=== PATIENT | female | born 1945 | race Caucasian/White ===

== ENCOUNTER 2025-01-05 14:12 | Inpatient (IN) | payer MEDICAID ==
[~2025-01-05] VITALS: Ht 134.6 cm; Wt 43.5 kg
[~2025-01-05 14:12] MED LIST: ASPI-1497 MT; ATOR40TA70 MT; COR6 PO; MULT-1247 PO; NIFE-32 PO
[2025-01-05 14:19] VITALS: O2SAT 95
[2025-01-05 15:39] LABS: BG DEOXYHEMOGLOBIN 21.7 % (0.0-5.0)
[2025-01-05 15:41] LABS: TROPONIN I HIGH SENSITIVITY 15 ng/L (3.0-34)
[2025-01-05 15:43] LABS: UREA NITROGEN BLOOD 18 mg/dL (9-23)
[2025-01-05 15:44] LABS: ASPARTATE AMINOTRANSFERASE 26 IU/L (<34); CREATININE 1.7 mg/dL (0.6-1.0)
[2025-01-05 15:45] LABS: BILIRUBIN DIRECT 0.1 mg/dL (<=3.0); BILIRUBIN TOTAL 0.3 mg/dL (0.1-1.0); PROTEIN TOTAL 6.0 g/dL (6.0-8.3)
[2025-01-05 17:27] LABS: BASOPHILS % 1.0 % (0.0-2.0); EOSINOPHILS % 1.6 % (0.0-5.0); HEMATOCRIT. 31.5 % (36.0-48.0); HEMOGLOBIN. 10.3 g/dL (12.0-16.0); LYMPHOCYTES % 17.7 % (20.0-50.0); MEAN PLATELET VOLUME 8.6 fl (7.4-10.4); MONOCYTES % 7.0 % (2.0-8.0); NEUTROPHILS % 72.7 % (40.0-76.0); PLATELET 156 x1000/uL (130-400); RED BLOOD CELL COUNT 2.95 mill/uL (4.2-5.4); RED CELL DISTRIBUTION WIDTH 15.1 % (11.6-14.6)
[2025-01-05] MEDS ORDERED: IOHEXOL-350 100 ML BOTTLE ONE (23:35)
[2025-01-06 00:26] VITALS: BP 142/67; PULSE 78; RESP 16; TEMP 36.2512
[2025-01-06] MEDS: ATORVASTATIN CALCIUM 40MG TABLET PO SCH (02:23)
[2025-01-06 07:22] LABS: TROPONIN I HIGH SENSITIVITY 17 ng/L (3.0-34)
[2025-01-06 07:36] LABS: BASOPHILS % 0.7 % (0.0-2.0); EOSINOPHILS % 4.3 % (0.0-5.0); HEMATOCRIT. 34.9 % (36.0-48.0); HEMOGLOBIN. 11.4 g/dL (12.0-16.0); LYMPHOCYTES % 28.8 % (20.0-50.0); MEAN PLATELET VOLUME 8.4 fl (7.4-10.4); MONOCYTES % 7.9 % (2.0-8.0); NEUTROPHILS % 58.3 % (40.0-76.0); PLATELET 137 x1000/uL (130-400); RED BLOOD CELL COUNT 3.24 mill/uL (4.2-5.4); RED CELL DISTRIBUTION WIDTH 15.5 % (11.6-14.6)
[2025-01-06 08:00] VITALS: BP 205/71; PULSE 67; RESP 20; TEMP 36.6
[2025-01-06] MEDS: HYDRALAZINE 20MG/ML VIAL IV PRN (09:04)
[2025-01-06] MEDS: MULTIVITAMINS,THER W-MINERALS TABLET PO SCH (09:04)
[2025-01-06] MEDS: ASPIRIN 81MG EC TABLET PO SCH (09:05)
[2025-01-06] MEDS: CARVEDILOL 6.25 MG TABLET PO SCH (09:06)
[2025-01-06] MEDS: NIFEDIPINE XL 60MG TAB PO SCH (09:07)
[2025-01-06] MEDS: CLONIDINE 0.1MG TABLET PO PRN (11:12)
[2025-01-06 12:00] VITALS: BP 181/54; PULSE 73; RESP 16; TEMP 37.1; O2SAT 96
[2025-01-06 16:00] VITALS: BP 130/48; PULSE 74; RESP 16; TEMP 37.3; O2SAT 92
[2025-01-06 18:16] LABS: T4 FREE 1.23 ng/dL (0.89-1.76)
[2025-01-06 19:42] LABS: FOLIC ACID (FOLATE) SERUM 19.15 ng/mL (>5.38); VITAMIN B12 SERUM 801 pg/mL (211-911)
[2025-01-06 20:00] VITALS: BP 104/62; PULSE 73; RESP 16; TEMP 36.6; O2SAT 99
[2025-01-06] MEDS: HEPARIN 5000 UNITS/ML VIAL SUBCUT SCH (21:45)
[2025-01-07] VITALS: BP 159/42; PULSE 80; RESP 17; TEMP 37.1; O2SAT 94
[2025-01-07] MEDS: DIPHENHYDRAMINE 50MG/ML VIAL IV PRN (00:35)
[2025-01-07 04:00] VITALS: BP 113/81; PULSE 72; RESP 16; TEMP 36.9; O2SAT 94
[2025-01-07 08:00] VITALS: BP 247/89; PULSE 73; RESP 17; TEMP 36.9; O2SAT 95
[2025-01-07 09:28] LABS: BASOPHILS % 1.2 % (0.0-2.0); EOSINOPHILS % 4.8 % (0.0-5.0); HEMATOCRIT. 32.4 % (36.0-48.0); HEMOGLOBIN. 10.7 g/dL (12.0-16.0); LYMPHOCYTES % 27.7 % (20.0-50.0); MEAN PLATELET VOLUME 8.9 fl (7.4-10.4); MONOCYTES % 9.6 % (2.0-8.0); NEUTROPHILS % 56.7 % (40.0-76.0); PLATELET 160 x1000/uL (130-400); RED BLOOD CELL COUNT 3.00 mill/uL (4.2-5.4); RED CELL DISTRIBUTION WIDTH 15.7 % (11.6-14.6)
[2025-01-07 09:45] LABS: UREA NITROGEN BLOOD 26.0 mg/dL (9-23)
[2025-01-07 09:49] LABS: CREATININE 3.1 mg/dL (0.6-1.0)
[2025-01-07 12:00] VITALS: BP 136/50; PULSE 69; RESP 16; TEMP 36.9; O2SAT 98
[2025-01-07 16:00] VITALS: BP 139/54; PULSE 67; RESP 19; TEMP 37; O2SAT 97
[2025-01-07] MEDS: LACTULOSE 20G/30ML UDC PO SCH (16:00)
[2025-01-07 20:00] VITALS: BP 143/53; PULSE 61; RESP 18; TEMP 36.6; O2SAT 97
[2025-01-07] MEDS: ATORVASTATIN CALCIUM 40MG TABLET PO SCH (21:27)
[2025-01-08] VITALS (15 sets, daily range): BP systolic 96–212; BP diastolic 49–116; PULSE 60–73; RESP 16–18; TEMP 36.2–37.2; O2SAT 94–100
[2025-01-08 07:52] LABS: BASOPHILS % 0.9 % (0.0-2.0); EOSINOPHILS % 3.6 % (0.0-5.0); HEMATOCRIT. 38.2 % (36.0-48.0); HEMOGLOBIN. 12.4 g/dL (12.0-16.0); LYMPHOCYTES % 19.3 % (20.0-50.0); MEAN PLATELET VOLUME 9.0 fl (7.4-10.4); MONOCYTES % 4.2 % (2.0-8.0); NEUTROPHILS % 72.0 % (40.0-76.0); PLATELET 149 x1000/uL (130-400); RED BLOOD CELL COUNT 3.60 mill/uL (4.2-5.4); RED CELL DISTRIBUTION WIDTH 15.3 % (11.6-14.6)
[2025-01-08 08:11] LABS: CREATININE 3.6 mg/dL (0.6-1.0); UREA NITROGEN BLOOD 34.0 mg/dL (9-23)
[2025-01-08 18:03] LABS: HEPATITIS A AB IGM NEGATIVE (Negative)
[2025-01-08 18:04] LABS: HEPATITIS B CORE AB IGM NEGATIVE (Negative); HEPATITIS C AB NON REACTIVE (Neg) (Negative)
[2025-01-09] VITALS (7 sets, daily range): BP systolic 135–195; BP diastolic 52–105; PULSE 64–77; RESP 16–17; TEMP 36.1–37.2; O2SAT 92–100
[2025-01-09 07:47] LABS: CREATININE 3.2 mg/dL (0.6-1.0); UREA NITROGEN BLOOD 23.0 mg/dL (9-23)
[2025-01-09 07:56] LABS: HEMATOCRIT. 33.5 % (36.0-48.0); HEMOGLOBIN. 10.8 g/dL (12.0-16.0); MEAN PLATELET VOLUME 9.2 fl (7.4-10.4); PLATELET 139 x1000/uL (130-400); RED BLOOD CELL COUNT 3.15 mill/uL (4.2-5.4); RED CELL DISTRIBUTION WIDTH 15.1 % (11.6-14.6)
[2025-01-09 20:00] LABS: EOSINOPHILS % MANUAL 4.0 % (0.0-5.0); LYMPHOCYTES % MANUAL 18.0 % (20.0-60.0); MONOCYTES % MANUAL 7.0 % (2.0-8.0); NEUTROPHILS % MANUAL 71.0 % (45.0-75.0); PLATELET ESTIMATE NORMAL
[2025-01-09] MEDS: ZOLPIDEM TARTRATE 5MG TABLET PO PRN (21:24)
[2025-01-10] VITALS (13 sets, daily range): BP systolic 112–190; BP diastolic 49–90; PULSE 60–73; RESP 15–20; TEMP 36.114–37; O2SAT 97–100
[2025-01-10 07:53] LABS: BASOPHILS % 0.7 % (0.0-2.0); CREATININE 3.7 mg/dL (0.6-1.0); EOSINOPHILS % 5.6 % (0.0-5.0); HEMATOCRIT. 29.0 % (36.0-48.0); HEMOGLOBIN. 9.6 g/dL (12.0-16.0); LYMPHOCYTES % 28.8 % (20.0-50.0); MEAN PLATELET VOLUME 9.1 fl (7.4-10.4); MONOCYTES % 9.8 % (2.0-8.0); NEUTROPHILS % 55.1 % (40.0-76.0); PLATELET 137 x1000/uL (130-400); RED BLOOD CELL COUNT 2.73 mill/uL (4.2-5.4); RED CELL DISTRIBUTION WIDTH 14.8 % (11.6-14.6); UREA NITROGEN BLOOD 25.0 mg/dL (9-23)
[2025-01-10] MEDS ORDERED: NALOXONE HCL 0.4MG/ML VIAL IV PRN (11:45)
[2025-01-10] MEDS: CEFTRIAXONE 1GM/50ML 50 ML IV SCH (12:00)
[2025-01-10] MEDS: AZITHROMYCIN 500MG/250ML 250 ML IV SCH (19:55)
[2025-01-11] VITALS: BP 158/51; PULSE 62; RESP 17; TEMP 36.2; O2SAT 94
[2025-01-11 04:00] VITALS: BP 159/53; PULSE 67; RESP 16; TEMP 36.2; O2SAT 97
[2025-01-11 08:00] VITALS: BP 168/52; PULSE 63; RESP 18; TEMP 36.4; O2SAT 97
[2025-01-11 16:00] VITALS: BP 118/50; PULSE 70; RESP 18; TEMP 36.4; O2SAT 96
[2025-01-11 20:00] VITALS: BP 137/51; PULSE 69; RESP 18; TEMP 36.4; O2SAT 97
[2025-01-12] VITALS (16 sets, daily range): BP systolic 91–180; BP diastolic 28–63; PULSE 63–78; RESP 16–20; TEMP 36.114–37.1; O2SAT 96–100
[2025-01-12 07:24] LABS: BASOPHILS % 0.8 % (0.0-2.0); EOSINOPHILS % 7.1 % (0.0-5.0); HEMATOCRIT. 31.3 % (36.0-48.0); HEMOGLOBIN. 10.1 g/dL (12.0-16.0); LYMPHOCYTES % 25.3 % (20.0-50.0); MEAN PLATELET VOLUME 9.2 fl (7.4-10.4); MONOCYTES % 9.5 % (2.0-8.0); NEUTROPHILS % 57.3 % (40.0-76.0); PLATELET 138 x1000/uL (130-400); RED BLOOD CELL COUNT 2.88 mill/uL (4.2-5.4); RED CELL DISTRIBUTION WIDTH 14.8 % (11.6-14.6)
[2025-01-12 07:40] LABS: CREATININE 3.7 mg/dL (0.6-1.0)
[2025-01-12 07:41] LABS: UREA NITROGEN BLOOD 22.0 mg/dL (9-23)
[2025-01-12] MEDS: HYDROCODONE/ACETAMINOPHEN 5/325MG TABLET PO PRN (21:06)
[2025-01-13] VITALS: BP 155/50; PULSE 70; RESP 20; TEMP 36.1; O2SAT 96
[2025-01-13 04:00] VITALS: BP 158/55; PULSE 75; RESP 20; TEMP 36.2; O2SAT 96
[2025-01-13 08:00] VITALS: BP 175/53; PULSE 70; RESP 20; TEMP 36.5; O2SAT 100
[2025-01-13] MEDS ORDERED: LIDOCAINE HCL 1% 20ML VIAL INFIL SCH (08:30)
[2025-01-13 12:00] VITALS: BP 169/57; PULSE 63; RESP 20; TEMP 36.6; O2SAT 100
[2025-01-13 16:00] VITALS: BP 120/67; PULSE 62; RESP 20; TEMP 36.6; O2SAT 100
[2025-01-13 20:00] VITALS: BP 106/34; PULSE 64; RESP 16; TEMP 37; O2SAT 99
[2025-01-14] VITALS: BP 153/69; PULSE 70; RESP 17; TEMP 36.9; O2SAT 97
[2025-01-14 04:00] VITALS: BP 165/64; PULSE 71; RESP 17; TEMP 37.3; O2SAT 97
[2025-01-14 08:00] VITALS: BP 145/64; PULSE 72; RESP 18; TEMP 36.9; O2SAT 98
[2025-01-14 12:00] VITALS: BP 132/64; PULSE 74; RESP 18; O2SAT 98
[2025-01-14 16:00] VITALS: BP 142/64; PULSE 76; RESP 19; O2SAT 97
[2025-01-14 20:00] VITALS: BP 143/51; PULSE 67; RESP 17; TEMP 36.6; O2SAT 96
[2025-01-15] VITALS (15 sets, daily range): BP systolic 105–169; BP diastolic 36–62; PULSE 52–79; RESP 16–20; TEMP 36.22512–36.7; O2SAT 91–100
[2025-01-15 07:59] LABS: CREATININE 3.7 mg/dL (0.6-1.0); UREA NITROGEN BLOOD 21.0 mg/dL (9-23)
[2025-01-15 08:03] LABS: BASOPHILS % 0.6 % (0.0-2.0); EOSINOPHILS % 6.7 % (0.0-5.0); HEMATOCRIT. 31.7 % (36.0-48.0); HEMOGLOBIN. 10.3 g/dL (12.0-16.0); LYMPHOCYTES % 27.5 % (20.0-50.0); MEAN PLATELET VOLUME 9.0 fl (7.4-10.4); MONOCYTES % 9.5 % (2.0-8.0); NEUTROPHILS % 55.7 % (40.0-76.0); PLATELET 135 x1000/uL (130-400); RED BLOOD CELL COUNT 2.94 mill/uL (4.2-5.4); RED CELL DISTRIBUTION WIDTH 15.0 % (11.6-14.6)
[2025-01-15 11:41] LABS: INR 1.2
[2025-01-16] VITALS: BP 121/52; PULSE 68; RESP 16; TEMP 36.9; O2SAT 97
[2025-01-16 04:00] VITALS: BP 189/70; PULSE 71; RESP 16; TEMP 36.5; O2SAT 96
[2025-01-16 08:00] VITALS: BP 189/58; PULSE 56; RESP 16; TEMP 36.1; O2SAT 96
[2025-01-16] MEDS: HEPARIN 5000 UNITS/ML VIAL SUBCUT SCH (09:00)
[2025-01-16 12:00] VITALS: BP 158/63; PULSE 62; RESP 16; TEMP 36.3; O2SAT 98
[2025-01-16 16:00] VITALS: BP 115/46; PULSE 64; RESP 16; TEMP 36.8; O2SAT 100
[2025-01-16 20:00] VITALS: BP 138/49; PULSE 65; RESP 17; TEMP 37.1; O2SAT 100
[2025-01-17] VITALS (14 sets, daily range): BP systolic 109–172; BP diastolic 47–68; PULSE 64–77; RESP 16–18; TEMP 35.9–37.3; O2SAT 94–100
[2025-01-17 08:59] LABS: BASOPHILS % 0.5 % (0.0-2.0); EOSINOPHILS % 3.5 % (0.0-5.0); HEMATOCRIT. 31.2 % (36.0-48.0); HEMOGLOBIN. 10.0 g/dL (12.0-16.0); LYMPHOCYTES % 22.6 % (20.0-50.0); MEAN PLATELET VOLUME 9.1 fl (7.4-10.4); MONOCYTES % 6.8 % (2.0-8.0); NEUTROPHILS % 66.6 % (40.0-76.0); PLATELET 136 x1000/uL (130-400); RED BLOOD CELL COUNT 2.86 mill/uL (4.2-5.4); RED CELL DISTRIBUTION WIDTH 14.9 % (11.6-14.6)
[2025-01-17 09:15] LABS: CREATININE 4.0 mg/dL (0.6-1.0); UREA NITROGEN BLOOD 25.0 mg/dL (9-23)
[2025-01-18] VITALS: BP 106/70; PULSE 99; RESP 18; TEMP 36.5; O2SAT 100
[2025-01-18 04:00] VITALS: BP 110/76; PULSE 81; RESP 18; TEMP 36.5; O2SAT 96
[2025-01-18 06:44] LABS: BASOPHILS % 0.6 % (0.0-2.0); EOSINOPHILS % 3.5 % (0.0-5.0); HEMATOCRIT. 31.8 % (36.0-48.0); HEMOGLOBIN. 10.3 g/dL (12.0-16.0); LYMPHOCYTES % 25.7 % (20.0-50.0); MEAN PLATELET VOLUME 8.9 fl (7.4-10.4); MONOCYTES % 8.3 % (2.0-8.0); NEUTROPHILS % 61.9 % (40.0-76.0); PLATELET 153 x1000/uL (130-400); RED BLOOD CELL COUNT 2.97 mill/uL (4.2-5.4); RED CELL DISTRIBUTION WIDTH 14.6 % (11.6-14.6)
[2025-01-18 06:55] LABS: CREATININE 3.6 mg/dL (0.6-1.0)
[2025-01-18 06:56] LABS: UREA NITROGEN BLOOD 23.0 mg/dL (9-23)
[2025-01-18 08:00] VITALS: BP 204/72; PULSE 72; RESP 18; TEMP 37.1; O2SAT 98
[2025-01-18] MEDS ORDERED: NIFE90TA60 MT (10:31)
[2025-01-18] MEDS: NIFEDIPINE XL 30MG TAB PO NR (11:46)
[2025-01-18 12:00] VITALS: BP 137/43; PULSE 70; RESP 15; TEMP 36.9; O2SAT 97
[2025-01-18 15:17] VITALS: BP 102/38; PULSE 68; RESP 16; TEMP 98.1
[2025-01-19] MEDS ORDERED: NIFEDIPINE XL 90MG TAB PO SCH (09:00)
== END 2025-01-18 18:30 | disposition home or self-care (01) | DRG 133 ==
LOC: ER 14:12 → 5WST 17:35 → EDBEDREQ 17:38
PROVIDERS: ADMIT Internal Medicine; ATTEND Internal Medicine
PROC: 5A1D70Z Performance of Urinary Filtration, Intermittent, Less than 6 Hours Per Day (ICD-10-PCS; 2025-01-08)
PROC: 4A10X4Z Monitoring of Central Nervous Electrical Activity, External Approach (ICD-10-PCS; principal; 2025-01-09)
PROC: 5A1D70Z Performance of Urinary Filtration, Intermittent, Less than 6 Hours Per Day (ICD-10-PCS; 2025-01-10)
PROC: 5A1D70Z Performance of Urinary Filtration, Intermittent, Less than 6 Hours Per Day (ICD-10-PCS; 2025-01-12)
PROC: 0JPT3XZ Removal of Tunneled Vascular Access Device from Trunk Subcutaneous Tissue and Fascia, Percutaneous Approach (ICD-10-PCS; 2025-01-13)
PROC: 05PY33Z Removal of Infusion Device from Upper Vein, Percutaneous Approach (ICD-10-PCS; 2025-01-13)
PROC: 5A1D70Z Performance of Urinary Filtration, Intermittent, Less than 6 Hours Per Day (ICD-10-PCS; 2025-01-15)
PROC: 5A1D70Z Performance of Urinary Filtration, Intermittent, Less than 6 Hours Per Day (ICD-10-PCS; 2025-01-17)
DX: J96.21 Acute and chronic respiratory failure with hypoxia (principal); G92.8 Other toxic encephalopathy; I16.1 Hypertensive emergency; E72.20 Disorder of urea cycle metabolism, unspecified; N18.6 End stage renal disease; I12.0 Hypertensive chronic kidney disease with stage 5 chronic kidney disease or end stage renal disease; Z99.2 Dependence on renal dialysis; J90 Pleural effusion, not elsewhere classified; I87.1 Compression of vein; E87.3 Alkalosis; E78.5 Hyperlipidemia, unspecified; I25.10 Atherosclerotic heart disease of native coronary artery without angina pectoris; Z74.01 Bed confinement status
CPT/HCPCS: 36415; 71045; 71275; 76604; 80048; 80076; 82140; 82375; 82607; 82746; 82803; 82962; 83735; 83880; 84145; 84439; 84443; 84481; 84484; 85025; 85379; 86705; 86709; 87340; 90935; 93005; 93970; 95816; 97162; 99285; A4606; J0360; J0456; J0696; J1200; J1644; J2003; Q9967